=== PATIENT | male | born 1960 | race Caucasian/White ===

== ENCOUNTER 2023-10-03 04:57 | Day surgery (SDC) | payer OTHER ==
[2023-10-01 07:51] VITALS: BMI 30.1
[2023-10-03 08:34] VITALS: TEMP 98.7
[2023-10-03 09:05] VITALS: BP 99/66; PULSE 67; RESP 18
== END 2023-10-03 09:05 | disposition home or self-care (01) ==
LOC: JASU-ENDO 04:57
PROVIDERS: ATTEND Internal Medicine Gastroenterology
PROC: 0DJD8ZZ Inspection of Lower Intestinal Tract, Via Natural or Artificial Opening Endoscopic (ICD-10-PCS; principal; 2023-10-03 08:00)
DX: Z12.11 Encounter for screening for malignant neoplasm of colon (principal); Z86.010 Personal history of colon polyps